=== PATIENT | male | born 2000 | race Caucasian/White ===

== ENCOUNTER 2024-05-14 02:42 | Inpatient (IN) | payer OTHER ==
[~2024-05-14] VITALS: Ht 170.2 cm; Wt 54.2 kg
[2024-05-14 03:00] VITALS: PULSE 76; RESP 12; O2SAT 95
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
[2024-05-14] MEDS: HALOPERIDOL LACTATE 5 MG/ML INJ VIAL ONE (03:28)
[2024-05-14] MEDS: HALOPERIDOL LACTATE 5 MG/ML INJ VIAL IM ONE (03:29)
[2024-05-14] MEDS ORDERED: HALOPERIDOL LACTATE 5 MG/ML INJ VIAL IM ONE (03:30)
[2024-05-14] MEDS: LORazepam 2MG/ML-1ML VIAL ONE (03:39)
[2024-05-14] MEDS: LORazepam 2MG/ML-1ML VIAL IV ONE (03:39)
[2024-05-14 04:18] LABS: Basophils # (auto) 0 10 ^3/uL (0-0.2); Basophils % (auto) 0.4 % (0.0-2.0); Eosinophils # (auto) 0 10 ^3/uL (0-0.8); Eosinophils % (auto) 0.3 % (0.0-7.0); Hematocrit 42.7 % (41.0-53.0); Hemoglobin 14.4 g/dL (13.5-17.5); Lymphocytes # (auto) 1.9 10 ^3/uL (0.4-5.4); Lymphocytes % (auto) 15.1 % (10.0-50.0); Mean Corpuscular Hemoglobin 30.6 pg (28.0-32.0); Mean Corpuscular Hgb Conc. 33.7 g/dL (32.0-36.0); Mean Corpuscular Volume 90.8 fL (80.0-100.0); Monocytes # (auto) 0.5 10 ^3/uL (0-1.3); Monocytes % (auto) 3.7 % (0.0-12.0); Neutrophils % (auto) 80.5 % (37.0-80.0); Nucleated Red Blood Cells % 0.2 %; Platelet Count (auto) 263 10^3/uL (140-450); Red Cell Distribution Width 13.7 % (11.8-14.3); White Blood Cell 12.4 10^3/uL (4.4-10.8)
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
[2024-05-14 04:51] LABS: Chloride 103 mmol/L (98-107); Sodium 140 mmol/L (136-145)
[2024-05-14 04:52] LABS: Anion Gap 13 (5-15); Calcium 9.5 mg/dL (8.7-10.4); Carbon Dioxide 24 mmol/L (20-31)
[2024-05-14 04:54] LABS: Potassium 3.4 mmol/L (3.5-5.1)
[2024-05-14 04:57] LABS: BUN/Creatinine Ratio 13.4 (10.0-20.0); Blood Urea Nitrogen 9 mg/dL (9-23)
[2024-05-14 04:58] LABS: Blood Alcohol 285.9 mg/dL (<10); Glucose 130 mg/dL (74-106)
[2024-05-14] MEDS: SODIUM CHLORIDE 0.9% 2,000 ML IV ONE (05:15)
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
[2024-05-14 09:58] LABS: Amphetamine Screen, Urine Neg (NEGATIVE); Barbiturate Scree,Urine Neg (NEGATIVE); Benzodiazephine Screen, Urine Neg (NEGATIVE); Cannabinoid Screen, Urine Neg (NEGATIVE); Cocaine Screen, Urine Neg (NEGATIVE); Opiate Scree,Urine Neg (NEGATIVE); Phencyclidine Screen, Urine Neg (NEGATIVE)
[2024-05-14] MEDS ORDERED: DOCUSATE SOD 100 MG CAP PO PRN (10:30)
[2024-05-14] MEDS ORDERED: ONDANSETRON HCL 4 MG/2 ML VIAL IV PRN (10:30)
[2024-05-14] MEDS ORDERED: LORazepam 2MG/ML-1ML VIAL IV PRN (10:30)
[2024-05-14] MEDS ORDERED: NITROGLYCERIN 0.4 MG SL TAB SL PRN (10:30)
[2024-05-14] MEDS: SODIUM CHLORIDE 0.9% 1,000 ML IV SCH (10:39)
[2024-05-14 11:22] LABS: Blood Alcohol 138.2 mg/dL (<10); Magnesium 1.9 mg/dL (1.6-2.6)
[2024-05-14 13:14] VITALS: PULSE 95; RESP 18; O2SAT 98
[2024-05-14 13:15] VITALS: BP 121/76; PULSE 78; RESP 18; TEMP 98.7; O2SAT 91
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
[2024-05-14 20:00] VITALS: PULSE 87; RESP 18; O2SAT 97
[2024-05-14] MEDS: FOLIC ACID 1 MG, MAGNESIUM SULF SDV 50% 8 MEQ, MULTIPLE VITAMIN 10 ML, THIAMINE INJ 100... INJ SCH (20:48)
[2024-05-14] MEDS: MVI in SODIUM CHLORIDE 0.9% 1,010 ML ONE (20:58)
[2024-05-14] MEDS: THIAMINE 100mg/ml INJ (200mg/2ml VIAL) ONE (20:58)
[2024-05-15] VITALS (8 sets, daily range): BP systolic 112–129; BP diastolic 67–95; PULSE 74–99; RESP 17–19; TEMP 97.9–99.1; O2SAT 90–99
[2024-05-15 06:34] LABS: Basophils # (auto) 0 10 ^3/uL (0-0.2); Basophils % (auto) 0.3 % (0.0-2.0); Eosinophils # (auto) 0 10 ^3/uL (0-0.8); Eosinophils % (auto) 0.3 % (0.0-7.0); Hematocrit 41.4 % (41.0-53.0); Hemoglobin 13.9 g/dL (13.5-17.5); Lymphocytes # (auto) 1.8 10 ^3/uL (0.4-5.4); Mean Corpuscular Hemoglobin 30.5 pg (28.0-32.0); Mean Corpuscular Hgb Conc. 33.7 g/dL (32.0-36.0); Mean Corpuscular Volume 90.4 fL (80.0-100.0); Monocytes # (auto) 1.4 10 ^3/uL (0-1.3); Monocytes % (auto) 10.2 % (0.0-12.0); Neutrophils # (auto) 10.4 10 ^3/uL (1.6-8.6); Neutrophils % (auto) 76.2 % (37.0-80.0); Platelet Count (auto) 235 10^3/uL (140-450); Red Blood Cells 4.57 10^6/uL (4.5-5.90); Red Cell Distribution Width 13.7 % (11.8-14.3); White Blood Cell 13.7 10^3/uL (4.4-10.8)
[2024-05-15 06:48] LABS: Alanine Aminotransferase 19 U/L (7-40); Albumin 4.4 g/dL (3.2-4.8); Alkaline Phosphatase 79 U/L (46-116); Anion Gap 7 (5-15); Aspartate Aminotransferase 33 U/L (13-40); BUN/Creatinine Ratio 11.9 (10.0-20.0); Calcium 9.5 mg/dL (8.7-10.4); Carbon Dioxide 26 mmol/L (20-31); Chloride 105 mmol/L (98-107); Glucose 94 mg/dL (74-106); Potassium 3.8 mmol/L (3.5-5.1); Sodium 138 mmol/L (136-145); Total Protein 6.7 g/dL (5.7-8.2)
[2024-05-15 06:49] LABS: Bilirubin, Total 1.1 mg/dL (0.2-1.0)
[2024-05-15 06:51] LABS: Blood Urea Nitrogen 8 mg/dL (9-23)
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
[2024-05-15] MEDS: FOLIC ACID 1 MG TAB PO ONE (17:44)
[2024-05-15] MEDS: MAGNESIUM OXIDE 400 MG TAB PO ONE (17:44)
[2024-05-15] MEDS: THIAMINE HCL 100 MG TAB PO ONE (17:44)
[2024-05-15] MEDS: MULTIPLE VITAMIN TAB PO ONE (17:45)
[2024-05-16 01:00] VITALS: BP 143/85; PULSE 94; RESP 19; TEMP 97.9; O2SAT 98
[2024-05-16 05:00] VITALS: BP 134/61; PULSE 67; RESP 19; TEMP 98.2; O2SAT 97
[2024-05-16 08:00] VITALS: PULSE 72
[2024-05-16] MEDS: THIAMINE HCL 100 MG TAB PO SCH (10:05)
[2024-05-16] MEDS: MULTIPLE VITAMIN TAB PO SCH (10:05)
[2024-05-16] MEDS: FOLIC ACID 1 MG TAB PO SCH (10:06)
[2024-05-16] MEDS: MAGNESIUM OXIDE 400 MG TAB PO SCH (10:06)
[2024-05-16] MEDS ORDERED: ACETAMINOPHEN 325 MG TAB PO PRN (10:15)
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
[2024-05-16 11:39] VITALS: BP 127/90; PULSE 102; RESP 16; TEMP 98.8; O2SAT 96
== END 2024-05-16 13:08 | disposition home or self-care (01) | DRG 92 ==
LOC: EDBD 02:42 → ER 02:42 → OVERFLOW 10:19 → TELE-CENTR 21:23
PROVIDERS: ADMIT Nurse Practitioner Acute Care; ATTEND Nurse Practitioner Acute Care
DX: G92.8 Other toxic encephalopathy (principal); F10.239 Alcohol dependence with withdrawal, unspecified; R64 Cachexia; Z68.1 Body mass index [BMI] 19.9 or less, adult; E87.6 Hypokalemia; F90.9 Attention-deficit hyperactivity disorder, unspecified type; S02.2XXA Fracture of nasal bones, initial encounter for closed fracture; F10.229 Alcohol dependence with intoxication, unspecified; S09.8XXA Other specified injuries of head, initial encounter; Z79.899 Other long term (current) drug therapy; X58.XXXA Exposure to other specified factors, initial encounter; Y93.89 Activity, other specified; Y92.89 Other specified places as the place of occurrence of the external cause; Y99.8 Other external cause status; Y90.8 Blood alcohol level of 240 mg/100 ml or more
CPT/HCPCS: 36415; 70450; 70486; 72125; 80048; 80053; 80307; 80320; 83735; 85025; 96361; 96372; 96374; 99291; G0378